=== PATIENT | male | born 1985 | race African-American/Black ===

== ENCOUNTER 2024-11-14 13:26 | Emergency (ER) | payer SELFPAY ==
[~2024-11-14] VITALS: Ht 172.7 cm; Wt 65.0 kg
[2024-11-14 13:35] VITALS: O2SAT 99
[2024-11-14] MEDS: KETOROLAC 30MG/ML VIAL IM ONE (14:20)
[2024-11-14] MEDS ORDERED: DOCU-422 MT (15:12)
[2024-11-14] MEDS ORDERED: SIME125T7 MT (15:12)
[2024-11-14] MEDS: DICYCLOMINE HCL 10MG/ML 2ML VIAL IM STA (15:23)
[2024-11-14 15:25] VITALS: BP 125/74; PULSE 68; RESP 16; TEMP 36.8; O2SAT 97
== END 2024-11-14 15:28 | disposition home or self-care (01) ==
LOC: ER 13:34
DX: R14.0 Abdominal distension (gaseous) (principal); R14.1 Gas pain; R07.89 Other chest pain
CPT/HCPCS: 99284; 71045; 93005; 96372; J1885; J0500

== ENCOUNTER 2024-11-20 15:40 | Emergency (ER) | payer SELFPAY ==
[~2024-11-20] VITALS: Ht 180.3 cm; Wt 59.0 kg
[~2024-11-20 15:40] MED LIST: DOCU-422 MT; SIME125T7 MT
[2024-11-20 15:50] VITALS: O2SAT 98
[2024-11-20] MEDS ORDERED: MAG-55 MT (18:32)
[2024-11-20] MEDS ORDERED: POLY250017 MT (18:33)
[2024-11-20 19:02] VITALS: BP 118/76; PULSE 72; RESP 18; TEMP 36.7; O2SAT 98
== END 2024-11-20 20:23 | disposition home or self-care (01) ==
LOC: ER 15:40
DX: R14.1 Gas pain (principal); K59.00 Constipation, unspecified
CPT/HCPCS: 99283